=== PATIENT | female | born 1990 | race Two or more races ===

== ENCOUNTER 2021-07-03 18:58 | Emergency (ER) | payer MEDICAID, OTHER ==
[~2021-07-03] VITALS: Ht 157.5 cm; Wt 83.9 kg
[2021-07-03 19:53] LABS: Basophils # (auto) 0 10 ^3/uL (0-0.2); Eosinophils # (auto) 0.1 10 ^3/uL (0-0.8); Eosinophils % (auto) 1.4 % (0.0-7.0); Hematocrit 22.5 % (36.0-46.0); Mean Corpuscular Hemoglobin 19.3 pg (28.0-32.0); Mean Corpuscular Hgb Conc. 30.7 g/dL (32.0-36.0); Neutrophils # (auto) 5.8 10 ^3/uL (1.6-8.6)
[2021-07-03 19:54] LABS: Basophils % (auto) 0.2 % (0.0-2.0); Lymphocytes # (auto) 1.8 10 ^3/uL (0.4-5.4); Lymphocytes % (auto) 22.9 % (10.0-50.0); Mean Corpuscular Volume 62.9 fL (80.0-100.0); Monocytes # (auto) 0.3 10 ^3/uL (0-1.3); Monocytes % (auto) 4.1 % (0.0-12.0); Neutrophils % (auto) 71.4 % (37.0-80.0); Red Blood Cells 3.58 10^6/uL (4.0-5.20); White Blood Cell 8.1 10^3/uL (4.4-10.8)
[2021-07-03 20:08] LABS: Albumin 3.2 g/dL (3.4-5.0); Anion Gap 8 (5-15); Blood Urea Nitrogen 9 mg/dL (7-18); Calcium 8.4 mg/dL (8.5-10.1); Carbon Dioxide 23 mmol/L (21-32); Chloride 110 mmol/L (98-107); Glucose 112 mg/dL (74-106); Potassium 3.6 mmol/L (3.5-5.1); Sodium 141 mmol/L (136-145)
[2021-07-03 20:10] LABS: Alanine Aminotransferase 22 U/L (13-56); Aspartate Aminotransferase 16 U/L (15-37); BUN/Creatinine Ratio 15.8; GFR African American 160 mL/min; GFR Non-African American 132 mL/min
[2021-07-03 20:13] LABS: Red Cell Distribution Width 21.4 % (11.8-14.3)
[2021-07-03 20:15] LABS: Alkaline Phosphatase 59 U/L (45-117); Bilirubin, Total 0.3 mg/dL (0.2-1.0); Total Protein 7.1 g/dL (6.4-8.2)
[2021-07-03 20:28] LABS: Hemoglobin 6.9 g/dL (12.2-16.2)
[2021-07-03 21:36] LABS: INR 1.04 (0.9-1.15); Partial Thromboplastin Time 21.1 sec (23.6-33.0)
[2021-07-03 23:52] VITALS: BP 140/93
== END 2021-07-04 01:24 | disposition left against medical advice (07) ==
LOC: ER 18:59
DX: N93.9 Abnormal uterine and vaginal bleeding, unspecified (principal); R20.0 Anesthesia of skin; D64.9 Anemia, unspecified; Z90.49 Acquired absence of other specified parts of digestive tract; Z53.29 Procedure and treatment not carried out because of patient's decision for other reasons
CPT/HCPCS: 36415; 70450; 76856; 80053; 84484; 85025; 85610; 85730; 86850; 86900; 86901; 86920; 93005